=== PATIENT | female | born 1955 | race African-American/Black ===

== ENCOUNTER 2017-08-02 12:28 | Emergency (ER) | payer MEDICARE, MEDICAID ==
[2017-08-02] MEDS ORDERED: Lorazepam 2 MG/ML VIAL ONE (13:10)
--- NOTE | 2017-08-02 14:13 | CT ---
NONCONTRAST HEAD CT: Comparison: 05-29-17 History: Altered mental status. Technique: Noncontrast head CT is performed from skull base to skull vertex. FINDINGS: No parenchymal hemorrhage. No extraaxial hematoma. No midline shift. Basilar cisterns are patent. Ag e appropriate brain volume. Cortical henderson-white matter differentiation is preserved. Ventricles and sulci are patent and symmetric. Stable hypodensity in the left subinsular white matter. Adequate aeration of the sinuses and mastoid air cells. Calvarium is intact. IMPRESSION: No acute intracranial process. POS: [facility]
--- NOTE | 2017-08-02 14:17 | CT ---
CERVICAL SPINE CT WITHOUT CONTRAST: History: Seizure. Fall. Post-traumatic pain. Comparison: 10-21-23 Technique: Cervical spine CT is performed without contrast. Reformatted images are submitted for int erpretation. FINDINGS: Visualized soft tissue neck structures are unremarkable. The upper mediastinum and lung apices are also unremarkable. There are varying degrees of central ca nal stenosis and foraminal narrowing on the basis of degenerative change. On the coronal reformatted images, the lateral masses of C1 and C2 articulate appropriately. There i s appropriate articulation of the intraarticular facets. Odontoid process is intact. On the sagittal reformatted images, there is straightening of the normal cervical lordosis with slig ht reversal of lordosis at C5-6. There is preservation of cervical spine vertebral body height. No f racture. IMPRESSION: 1. No fracture. 2. Straightening of the normal cervical lordosis as above. 3. Stable degenerative changes. POS: [facility]
--- NOTE | 2017-08-02 14:21 | CT ---
CT THORACIC SPINE WITHOUT CONTRAST: History: Fall. Post-traumatic pain. Comparison: 10-21-13 Technique: A noncontrast thoracic spine CT is performed in the axial plane. Sagittal and coronal ref ormatted images are submitted for interpretation. FINDINGS: Limited evaluation of the mediastinum. No obvious mass or lymphadenopathy. Heart size is within norm al limits. No significant pericardial fluid. Visualized aorta has a normal caliber. Visualized upper solid organs are unremarkable. Nonspecific hypertrophy of the left adrenal gland, unchanged. The thoracic spine does not demonstrate any malalignment. There is mild degenerative change with los s of disc space height. No evidence of spondylolisthesis. Thoracic spine vertebral body height is maintained. No fracture. There do appear to be multifocal vertebral body hemangiomas throughout the thoracic spine, unchanged . IMPRESSION: No fracture. POS: [facility]
--- NOTE | 2017-08-02 14:26 | CT ---
CT LUMBAR SPINE: Technique: Multiple axial tomograms were obtained through the lumbar spine with multiplanar reconstr uction. History: Low back pain. Patient fell from wheelchair after seizure. FINDINGS: Lumbar vertebrae maintain normal height and alignment. There is no evidence of acute fracture. There are mild degenerative changes noted with small osteophytes from the lumbar vertebrae. The disc spac es are preserved. No disc abnormality at L1-2. L2-3: Minimal disc bulge. Mild facet arthrosis. No central canal or foraminal stenosis. L3-4: Broad based bulge flattens the thecal sac. Facet and ligamentous hypertrophy is mild to modera te. These changes result in mild to moderate central canal stenosis. L4-5: Diffuse disc bulge flattens the thecal sac. Facet and ligamentous hypertrophy is more prominen t. Moderate central canal stenosis is present. L5-S1: Broad based disc bulge flattens the thecal sac and displaces both traversing S1 nerve roots. Facet hypertrophy. Moderate central canal stenosis. IMPRESSION: 1. No acute fracture identified. 2. Central canal stenosis seen at L3-4, L4-5, and L5-S1 levels as described above. POS: [facility]
[2017-08-02 15:00] LABS: Bilirubin Negative (Negative); Blood, Urine Negative (Negative); Glucose, Urine (Dipstick) Negative (Negative); Ketone, Urine Negative (Negative); Nitrite Negative (Negative); Protein, Urine (Dipstick) Negative (Neg-Trace)
[2017-08-02 15:04] LABS: #Basophils 0.1 thou/uL (0.0-0.2); #Eosinphils 0.2 thou/uL (0.0-0.7); #Lymphocytes 2.4 thou/uL (1.20-3.40); #Monocytes 0.8 thou/uL (0.11-0.59); #Neutrophils 5.5 thou/uL (1.40-6.50); %Basophils 0.7 % (0.0-1.0); %Eosinophils 2.1 % (0.0-10.0); %Lymphocytes 27.2 % (21.0-51.0); %Monocytes 8.6 % (0.0-10.0); Hematocrit 41.1 % (36.0-47.0); Mean Platelet Volume 8.4 fL (7.4-10.4); Red Blood Cell (RBC) Count 4.93 mill/uL (4.20-5.40); White Blood Cell (WBC) Count 8.9 thou/uL (4.8-10.8)
[2017-08-02 15:30] LABS: ALT (SGPT) 10 U/L (8-55); AST (SGOT) 11 U/L (5-34); Alkaline Phosphatase 115 U/L (40-150); Anion Gap 14 mmol/L (10-20); BUN (Urea Nitrogen) 11 mg/dL (9.8-20.1); Bilirubin, Total 0.2 mg/dL (0.2-1.2); Calc. Creatinine Clearance 0 mL/min (70-130); Calcium 9.9 mg/dL (7.8-10.44); Carbon Dioxide 25 mmol/L (22-29); Chloride 102 mmol/L (98-107); Estimated GFR-MDRD 86; Globulin 3.6 g/dL (2.4-3.5); Lipase 41 U/L (8-78); Magnesium 2.1 mg/dL (1.6-2.6); Protein, Total 7.6 g/dL (6.0-8.3)
[2017-08-02 15:34] LABS: Troponin I 0.012 ng/mL (< 0.028)
== END 2017-08-02 16:45 | disposition home or self-care (01) ==
LOC: ERS 12:28
DX: G40.909 Epilepsy, unspecified, not intractable, without status epilepticus (principal); E11.9 Type 2 diabetes mellitus without complications; I10 Essential (primary) hypertension; F41.9 Anxiety disorder, unspecified; F32.9 Major depressive disorder, single episode, unspecified; Z79.84 Long term (current) use of oral hypoglycemic drugs; Z86.73 Personal history of transient ischemic attack (TIA), and cerebral infarction without residual deficits; Z79.899 Other long term (current) drug therapy
CPT/HCPCS: 36415; 70450; 72125; 72128; 72131; 80053; 81003; 82553; 83690; 83735; 84484; 85025; 93005; 96374; J2060

== ENCOUNTER 2017-10-24 09:45 | Outpatient (CLI) | payer MEDICARE, MEDICAID | END 2017-10-24 09:46 | disposition home or self-care (01) | LOC: BICRAD 09:45 | PROVIDERS: ATTEND Family Medicine | DX: M25.512 Pain in left shoulder (principal); J18.0 Bronchopneumonia, unspecified organism; R07.2 Precordial pain | CPT/HCPCS: 71046 ==

== ENCOUNTER 2017-10-30 10:09 | Emergency (ER) | payer MEDICARE, MEDICAID | END 2017-10-30 12:30 | disposition home or self-care (01) | LOC: ERS 10:09 | DX: S40.012D Contusion of left shoulder, subsequent encounter (principal); E11.9 Type 2 diabetes mellitus without complications; I10 Essential (primary) hypertension; F41.9 Anxiety disorder, unspecified; F32.9 Major depressive disorder, single episode, unspecified; Z86.73 Personal history of transient ischemic attack (TIA), and cerebral infarction without residual deficits; W19.XXXD Unspecified fall, subsequent encounter | CPT/HCPCS: 99283 ==

== ENCOUNTER 2017-11-01 06:46 | Emergency (ER) | payer MEDICARE, MEDICAID ==
[2017-11-01] MEDS ORDERED: Ketorolac Tromethamine 60 MG/2 ML VIAL ONE (08:00)
[2017-11-01] MEDS ORDERED: Morphine 4 MG/ML Carpuject ONE (08:00)
== END 2017-11-01 09:01 | disposition home or self-care (01) ==
LOC: ERS 06:46
DX: M25.512 Pain in left shoulder (principal); Z86.73 Personal history of transient ischemic attack (TIA), and cerebral infarction without residual deficits; E11.9 Type 2 diabetes mellitus without complications; I10 Essential (primary) hypertension; F41.9 Anxiety disorder, unspecified; F32.9 Major depressive disorder, single episode, unspecified; G40.909 Epilepsy, unspecified, not intractable, without status epilepticus; W19.XXXA Unspecified fall, initial encounter
CPT/HCPCS: 96372; J1885; J2270

== ENCOUNTER 2017-12-11 10:11 | Outpatient (CLI) | payer MEDICARE, MEDICAID | END 2017-12-11 10:12 | disposition home or self-care (01) | LOC: BICRAD 10:11 | PROVIDERS: ATTEND Family Medicine | DX: R10.9 Unspecified abdominal pain (principal); E11.9 Type 2 diabetes mellitus without complications | CPT/HCPCS: 74018 ==

== ENCOUNTER 2017-12-28 13:40 | Outpatient (CLI) | payer MEDICARE, MEDICAID | END 2017-12-28 13:41 | disposition home or self-care (01) | LOC: BICMAMMO 13:40 | PROVIDERS: ATTEND Family Medicine | DX: Z12.31 Encounter for screening mammogram for malignant neoplasm of breast (principal); Z13.820 Encounter for screening for osteoporosis; R10.9 Unspecified abdominal pain; E11.9 Type 2 diabetes mellitus without complications; M85.88 Other specified disorders of bone density and structure, other site | CPT/HCPCS: 76770; 77063; 77067; 77080 ==

== ENCOUNTER 2018-01-18 14:11 | Emergency (ER) | payer MEDICARE, MEDICAID ==
[2018-01-18 14:45] LABS: #Basophils 0.1 thou/uL (0.0-0.2); #Eosinphils 0.1 thou/uL (0.0-0.7); #Lymphocytes 0.9 thou/uL (1.20-3.40); #Neutrophils 9.9 thou/uL (1.40-6.50); %Basophils 0.7 % (0.0-1.0); %Lymphocytes 7.5 % (21.0-51.0); %Neutrophils 82.8 % (42.0-75.0); Hemoglobin 14.2 g/dL (12.0-16.0); Mean Corpuscular HGB CONC 33.3 g/dL (32.0-36.0); Mean Corpuscular Hemoglobin 26.9 pg (27.0-31.0); Mean Corpuscular Volume 80.9 fl (81.0-99.0); Mean Platelet Volume 8.4 fL (7.4-10.4); Platelet Count 333 thou/uL (130-400); RBC Distribution Width 12.4 % (11.5-14.5); Red Blood Cell (RBC) Count 5.27 mill/uL (4.20-5.40)
--- NOTE | 2018-01-18 14:58 | RAD ---
PORTABLE CHEST 1 VIEW: Date: 01/18/18 Time: 1442 hours HISTORY: Chest pain, dizziness, nausea, vomiting, and headache. FINDINGS: Comparison made with exam of 04/07/17. There is continued elevation of the right hemidiaphragm. The heart size is normal. The lungs are well expanded without focal areas of consolidation, pneumothorax, or pleural effusions. IMPRESSION: No radiographic evidence of acute cardiopulmonary process. POS: [facility]
[2018-01-18 15:06] LABS: ALT (SGPT) 12 U/L (8-55); AST (SGOT) 12 U/L (5-34); Albumin 4.4 g/dL (3.4-4.8); Alkaline Phosphatase 106 U/L (40-150); Anion Gap 15 mmol/L (10-20); BUN (Urea Nitrogen) 16 mg/dL (9.8-20.1); Bilirubin, Total 0.3 mg/dL (0.2-1.2); Calc. Creatinine Clearance 0 mL/min (70-130); Calcium 9.9 mg/dL (7.8-10.44); Carbon Dioxide 19 mmol/L (23-31); Chloride 107 mmol/L (98-107); Estimated GFR-MDRD Greater than 90; Globulin 3.5 g/dL (2.4-3.5); Glucose 118 mg/dL (80-115); Potassium 3.9 mmol/L (3.5-5.1); Protein, Total 7.9 g/dL (6.0-8.3); Sodium 137 mmol/L (136-145)
[2018-01-18 15:10] LABS: CKMB 1.1 ng/mL (0-6.6); Troponin I Less than 0.010 ng/mL (< 0.028)
[2018-01-18] MEDS ORDERED: Meclizine HCl 25 MG TAB ONE (15:24)
[2018-01-18] MEDS ORDERED: Hydrocortisone Sod Succ/PF 100 mg/2 ml Vial ONE (15:24)
--- NOTE | 2018-01-18 15:25 | CT ---
CT BRAIN WITHOUT CONTRAST: History: Chest tightness, nausea, vomiting, dizziness, headache. Comparison: 07-23-17 FINDINGS: No definite acute infarct, hemorrhage, or hydrocephalus is present. Septum pellucidum of the third ve ntricle are midline. There is some mild chronic small vessel white matter ischemic change that appear s similar to the prior exam. The visualized mastoid air cells and paranasal sinuses are clear. The sk ull is intact. IMPRESSION: No acute intracranial abnormality. POS: [facility]
[2018-01-18] MEDS ORDERED: Metoclopramide HCl 10 MG/2 ML VIAL ONE (17:54)
--- NOTE | 2018-01-31 15:06 | EKG ---
Test Reason : Blood Pressure : / mmHG Vent. Rate : 103 BPM Atrial Rate : 103 BPM P-R Int : 112 ms QRS Dur : 082 ms QT Int : 344 ms P-R-T Axes : 043 059 -07 degrees QTc Int : 450 ms Sinus tachycardia Abnormal QRS-T angle, consider primary T wave abnormality Abnormal ECG Confirmed by ALE TIDWELL ([id number]), editor continuity and script ARMIDA WOODARD ([id number]) on 01/31/2018 3:05:30 PM Referred By: Confirmed By:ALE TIDWELL
== END 2018-01-18 19:07 | disposition home or self-care (01) ==
LOC: ERS 14:11
DX: H81.399 Other peripheral vertigo, unspecified ear (principal); R07.9 Chest pain, unspecified; E86.0 Dehydration
CPT/HCPCS: 36415; 36416; 70450; 71045; 80053; 82553; 84484; 85025; 93005; 96361; 96365; 96375; J1720; J2765

== ENCOUNTER 2018-03-01 14:34 | Outpatient (CLI) | payer MEDICARE, MEDICAID | END 2018-03-01 14:35 | disposition home or self-care (01) | LOC: BICMRI 14:34 | PROVIDERS: ATTEND Psychiatry & Neurology Neurology | DX: M47.892 Other spondylosis, cervical region (principal); M50.821 Other cervical disc disorders at C4-C5 level; G40.209 Localization-related (focal) (partial) symptomatic epilepsy and epileptic syndromes with complex partial seizures, not intractable, without status epilepticus | CPT/HCPCS: 72141 ==

== ENCOUNTER 2018-04-23 13:36 | Emergency (ER) | payer MEDICARE, MEDICAID ==
[2018-04-23] MEDS ORDERED: Lorazepam 2 MG/ML VIAL ONE (13:48)
[2018-04-23] MEDS ORDERED: Fentanyl 100 MCG/2 ML VIAL ONE (13:49)
== END 2018-04-23 14:37 | disposition home or self-care (01) ==
LOC: ERS 13:36
DX: M25.562 Pain in left knee (principal); M25.511 Pain in right shoulder; F41.0 Panic disorder [episodic paroxysmal anxiety]; E11.9 Type 2 diabetes mellitus without complications; I10 Essential (primary) hypertension; K21.9 Gastro-esophageal reflux disease without esophagitis; F41.9 Anxiety disorder, unspecified; F32.9 Major depressive disorder, single episode, unspecified; Z79.899 Other long term (current) drug therapy; Z79.84 Long term (current) use of oral hypoglycemic drugs; V29.9XXA Motorcycle rider (driver) (passenger) injured in unspecified traffic accident, initial encounter
CPT/HCPCS: 96374; 96375; J2060; J3010

== ENCOUNTER 2018-04-25 18:26 | Emergency (ER) | payer MEDICARE, MEDICAID ==
[2018-04-25] MEDS ORDERED: Lorazepam 2 MG/ML VIAL ONE (18:57)
[2018-04-25] MEDS ORDERED: levETIRAcetam 500 MG/100 ML PREMIX BAG ONE (20:30)
--- NOTE | 2018-04-25 20:46 | CT ---
HEAD CT WITHOUT CONTRAST: 04/25/18 COMPARISON: 01/18/18 HISTORY: Altered mental status. TECHNIQUE: Serial axial CT imaging at 5 mm intervals from vertex through skull base without contrast. FINDINGS: Imaged paranasal sinuses/mastoid air cells are well aerated. There is no displaced calvarial fracture . No intracranial hemorrhage, midline shift, mass effect or ventricular enlargement. IMPRESSION: No acute findings. POS: [facility]
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
[2018-04-25 21:25] LABS: #Basophils 0.1 thou/uL (0.0-0.2); #Eosinphils 0.1 thou/uL (0.0-0.7); #Lymphocytes 2.1 thou/uL (1.20-3.40); #Monocytes 0.8 thou/uL (0.11-0.59); #Neutrophils 4.8 thou/uL (1.40-6.50); %Basophils 0.8 % (0.0-1.0); %Eosinophils 1.4 % (0.0-10.0); %Lymphocytes 26.6 % (21.0-51.0); %Monocytes 9.6 % (0.0-10.0); %Neutrophils 61.7 % (42.0-75.0); Hemoglobin 12.5 g/dL (12.0-16.0); Mean Corpuscular HGB CONC 34.1 g/dL (32.0-36.0); Mean Corpuscular Hemoglobin 27.7 pg (27.0-31.0); Mean Corpuscular Volume 81.3 fL (78.0-98.0); Mean Platelet Volume 8.9 fL (7.4-10.4); Platelet Count 248 thou/uL (130-400); RBC Distribution Width 13.2 % (11.5-14.5); White Blood Cell (WBC) Count 7.8 thou/uL (4.8-10.8)
[2018-04-25 21:46] LABS: Anion Gap 15 mmol/L (10-20); BUN (Urea Nitrogen) 11 mg/dL (9.8-20.1); Calc. Creatinine Clearance 0 mL/min (70-130); Calcium 9.5 mg/dL (7.8-10.44); Carbon Dioxide 22 mmol/L (23-31); Chloride 103 mmol/L (98-107); Estimated GFR-MDRD 85; Glucose 110 mg/dL (80-115); Potassium 3.9 mmol/L (3.5-5.1); Sodium 136 mmol/L (136-145)
== END 2018-04-25 23:00 | disposition home or self-care (01) ==
LOC: ERS 18:26
DX: R56.9 Unspecified convulsions (principal); I10 Essential (primary) hypertension; K21.9 Gastro-esophageal reflux disease without esophagitis; F41.9 Anxiety disorder, unspecified; E11.9 Type 2 diabetes mellitus without complications; F32.9 Major depressive disorder, single episode, unspecified; Z86.73 Personal history of transient ischemic attack (TIA), and cerebral infarction without residual deficits; Z79.891 Long term (current) use of opiate analgesic; Z79.899 Other long term (current) drug therapy
CPT/HCPCS: 36415; 70450; 72125; 93005; 96365; J1953; J2060

== ENCOUNTER 2018-08-08 13:38 | Outpatient (CLI) | payer MEDICARE, MEDICAID ==
--- NOTE | 2018-08-08 16:30 | MRI ---
MR OF THE RIGHT SHOULDER WITHOUT CONTRAST: 08/08/18 INDICATION: History of right shoulder pain for three to four months. COMPARISON: None . FINDINGS: There is a large full thickness tear involving the supraspinatus and infraspinatus. There is delamina tion of the supraspinatus and infraspinatus tendons with portion of the inferior delaminated leaf ret racted to the level of the glenohumeral joint. The bursal surface leaf is retracted to the level of t he humeral head. There is mild supraspinatus and infraspinatus muscular atrophy. There is moderate te ndinosis of the subscapularis. There is prominent tendinosis of the intraarticular biceps tendon. Th ere is mild AC joint osteoarthrosis. There is a type II acromion. The inferior glenohumeral labral li gamentous complex is normal appearing. Glenohumeral articular surface appears within normal limits. IMPRESSION: 1. Massive rotator cuff tear with mild supraspinatus and infraspinatus muscular atrophy. There i s a delaminating tear component involving the supraspinatus and infraspinatus tendons with the articu lar surface leaf retracted back to the level of the glenohumeral joint. 2. Mild AC joint osteoarthrosis. POS: [facility]
== END 2018-08-08 13:39 | disposition home or self-care (01) ==
LOC: BICMRI 13:38
PROVIDERS: ATTEND Emergency Medicine Sports Medicine
DX: M75.101 Unspecified rotator cuff tear or rupture of right shoulder, not specified as traumatic (principal); M19.011 Primary osteoarthritis, right shoulder